=== PATIENT | female | born 1945 | race African-American/Black ===

== ENCOUNTER 2018-02-10 16:13 | Emergency (ER) | payer OTHER ==
[~2018-02-10] VITALS: Ht 152.4 cm; Wt 99.8 kg
[2018-02-10] MEDS ORDERED: COZAAR 50 MG TA50 MG PO (17:37)
[2018-02-10] MEDS ORDERED: OTEZLA30 MG PO (17:38)
[2018-02-10] MEDS ORDERED: ALPHAGAN P5 ML OPHTHALMIC (17:39)
[2018-02-10] MEDS ORDERED: COSOPT OCUMETER10 M1 OPHTHALMIC (17:40)
[2018-02-10] MEDS ORDERED: VITAMIN D5000 UNIT PO (17:40)
[2018-02-10] MEDS ORDERED: XALATAN2.5 ML OPHTHALMIC (17:40)
[2018-02-10] MEDS ORDERED: FLEXERIL PO (20:34)
[2018-02-10 20:50] VITALS: BP 157/80
== END 2018-02-10 21:10 | disposition home or self-care (01) ==
LOC: ER 16:13
DX: M54.5 Low back pain (principal); M54.6 Pain in thoracic spine; M54.2 Cervicalgia; Z90.710 Acquired absence of both cervix and uterus; V43.52XA Car driver injured in collision with other type car in traffic accident, initial encounter; Y93.89 Activity, other specified; Y92.89 Other specified places as the place of occurrence of the external cause; Y99.8 Other external cause status